=== PATIENT | male | born 1980 | race Caucasian/White ===

== ENCOUNTER 2020-03-30 17:19 | Emergency (ER) | payer BC, SELFPAY ==
--- NOTE | ~2020-03-30 | XR_ITS ---
EXAMINATION: XR finger 1st RT min 2V EXAM DATE: 03/30/2020 18:01 INDICATION: Initial encounter following injury, with pain of the right 1st finger. TECHNIQUE: Right 1st finger frontal, lateral and oblique projections obtained and reviewed. There is no prior study for comparison. FINDINGS: There is acute comminuted fracture through the base of the right 5th proximal phalanx exte nding into the neck and shaft. There is mild posterior angulation. Closed, posttraumatic fracture(s). There is overlying soft tissue swelling. No other acute findings. IMPRESSION: Acute comminuted right proximal phalangeal base fracture. Reviewed, dictated and finalized at location A.
[2020-03-30 17:32] VITALS: BP 135/92; PULSE 89; RESP 14; TEMP 37.1; O2SAT 99
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
--- NOTE | 2020-03-30 18:47 | PC.NURSE ---
KISHA Cloud spoke with access line, they gave follow up number
--- NOTE | 2021-01-31 12:05 | P.SLEEP_ITS ---
Sleep Study Ordering Provider: Abi King NP Interpreting Physician: Lilliana Lepe MD Height: 1.75 m Weight: 83.91 kg Body Mass Index: 27.3 [facility] Surgical History Surgical History (Updated 03/30/20 @ 17:46 by Sunil Cates PA-C) History of kidney surgery History of orthopedic surgery Social History Social History (Updated 03/30/20 @ 17:46 by Sunil Cates PA-C) Smoking status: Never smoker Gender identity (if verbalized by the patient): Male Medications Home Medications Medication Instructions Recorded Confirmed Type hydrocodone-acetaminophen 1 tablet PO Q6H PRN #20 tablet 03/30/20 Rx Respiratory Analysis Snoring Profile
== END 2020-03-30 19:37 | disposition home or self-care (01) ==
PROVIDERS: Emergency Provider Emergency Medicine
DX: S62.511A Displaced fracture of proximal phalanx of right thumb, initial encounter for closed fracture (principal); V86.56XA Driver of dirt bike or motor/cross bike injured in nontraffic accident, initial encounter
CPT/HCPCS: 29125; 73140; 99284